=== PATIENT | male | born 2000 | race Caucasian/White ===

== ENCOUNTER 2019-03-07 11:31 | Emergency (ER) | payer MEDICAID ==
[~2019-03-07] VITALS: Ht 182.9 cm; Wt 114.0 kg
[~2019-03-07 11:31] MED LIST: IBUPROFEN
[2019-03-07 14:29] VITALS: BP 127/83
[2019-03-07] MEDS ORDERED: IBUPROFEN 600MG TABLET PO ONE (14:30)
== END 2019-03-07 15:22 | disposition home or self-care (01) ==
LOC: ER 11:31
DX: H65.92 Unspecified nonsuppurative otitis media, left ear (principal); M79.10 Myalgia, unspecified site; J02.9 Acute pharyngitis, unspecified; R09.81 Nasal congestion; R05 Cough; Z79.899 Other long term (current) drug therapy
CPT/HCPCS: 99283

== ENCOUNTER 2019-12-24 10:28 | Emergency (ER) | payer MEDICAID ==
[~2019-12-24] VITALS: Ht 180.3 cm; Wt 73.0 kg
[2019-12-24 13:00] VITALS: BP 130/75
== END 2019-12-24 13:00 | disposition home or self-care (01) ==
LOC: ER 10:43
DX: J18.9 Pneumonia, unspecified organism (principal); R05 Cough; J06.9 Acute upper respiratory infection, unspecified
CPT/HCPCS: 71045; 87635; 93005; 99285